=== PATIENT | female | born 1985 | race American Indian/Alaskan Native ===

== ENCOUNTER 2017-02-10 17:29 | Emergency (ER) | payer MEDICAID, OTHER ==
[~2017-02-10] VITALS: Ht 167.6 cm; Wt 104.0 kg
[2017-02-10 18:13] VITALS: BP 119/62
== END 2017-02-10 21:22 | disposition home or self-care (01) ==
LOC: ER 21:22
DX: L50.9 Urticaria, unspecified (principal)
CPT/HCPCS: 99283